=== PATIENT | male | born 1985 | race Caucasian/White ===

== ENCOUNTER 2017-12-01 09:25 | Inpatient (IN) | payer OTHER ==
[2017-12-01 10:14] VITALS: BMI 27.3
--- NOTE | 2017-12-01 11:50 | HP ---
COWS - Scale Resting Pulse: 2= VT 101-120 Sweatin= Chills/Flushing Restless Observation: 5= Unable to Sit Still Pupil Size: 1= Pupils >than Normal Bone or Joint Aches: 4=Acute Joint/Muscle Pain Runny Nose/ Eye Tearin= Constantly Teary/Runny GI Upset > 30mins: 2= Nausea/Diarrhea Tremor Observation: 4= Gross Tremor/Twitching Yawning Observation: 2= >3x During Session Anxiety or Irritability: 4=Extreme Anxiety Goose Flesh Skin: 3=Piloerection COWS Score: 32 Admission ROS [facility] Allergies/Adverse Reactions: Allergies Allergy/AdvReac Type Severity Reaction Status Date / Time No Known Allergies Allergy Verified 12/01/17 10:06 - Ebola screening Have you traveled outside of the country in the last 21 days: No (N) Have you had contact with anyone from an Ebola affected area: No Have you been sick,other than usual withdrawal symptoms: No Do you have a fever: No Patient History - Patient Medical History Hx Asthma: Yes (Intermittent) Hx Chronic Obstructive Pulmonary Disease (COPD): No Hx Cardiac Disorders: No Hx Hypertension: No Hx Seizures: No Hx Diabetes: No Hx Gastrointestinal Disorders: No Hx Genitourinary Disorders: No Hx Sexually Transmitted Disorders: No Hx Renal Disease (ESRD): No Hx Human Immunodeficiency Virus (HIV): No (within 2 years) Hx Depression: No Hx Suicide Attempt: No Hx Bipolar Disorder: No Hx Schizophrenia: No - Patient Surgical History Past Surgical History: Yes Hx Neurologic Surgery: No Hx Cataract Extraction: No Hx Cardiac Surgery: No Hx Lung Surgery: No Hx Breast Surgery: No Hx Breast Biopsy: No Hx Abdominal Surgery: No Hx Appendectomy: Yes (appendectomy at age 13) Hx Cholecystectomy: No Hx Genitourinary Surgery: No Hx Section: No Hx Orthopedic Surgery: No Anesthesia Reaction: No - PPD History Previous Implant?: Yes Documented Results: Negative w/o proof Implanted On Prior R Admission?: No - Smoking Cessation Smoking history: Current every day smoker Have you smoked in the past 12 months: Yes Aproximately how many cigarettes per day: 20 Hx Chewing Tobacco Use: No Initiated information on smoking cessation: Yes 'Breaking Loose' booklet given: 12/01/17 - Substances Abused Heroin Route: Injection Frequency: Daily Amount used: 30-40 bags Age of first use: 31 Date of Last Use: 11/29/17 Xanax Route: Oral Frequency: Daily Amount used: 2-4 mg. Age of first use: 16 Date of Last Use: 11/25/17 Family Disease History - Family Disease History Other Family History: Grandfather: AUD. Father: Cocaine, AUD. Mother: AUD. Brothers: Risky drinkers Admission Physical Exam [facility]HS - Vital Signs Vital Signs: Vital Signs - 24 hr 12/01/17 10:09 Temperature 98.2 F Pulse Rate 114 H Respiratory 17 Rate Blood Pressure 134/89 - Physical General Appearance: Yes: Anxious Respiratory: Yes: Within Normal Limits, No Respiratory Distress Cardiology: Yes: Regular Rate, Tachycardia Abdominal: Yes: Within Normal Limits Extremities: Yes: Within Normal Limits Neurological: Yes: Within Normal Limits Cleared for Admission BH - Detox or Rehab Detox Regimen/Protocol: Suboxone (Suboxone induction ) Claeared for Rehab Admission: Yes BHS Breath Alcohol Content Breath Alcohol Content: 0 Urine Drug Screen - Results Drug Screen Negative: No Urine Drug Screen Results: BZO-Benzodiazepines Inpatient Rehab Admission - Initial Determination Are CD services needed?: Yes Free of communicable disease: Yes Not in need of hospitalization: No - Rehab Admission Criteria Previous failed treatment: Yes Poor recovery environment: Yes Comorbidities: Yes Lacks judgement: Yes Patient is meeting Inpatient Rehab admission criteria:: Yes (Long history of DEDRA , failed other attempts at treatment)
[2017-12-01] MEDS ORDERED: guaiFENesin/D-METHORPHAN HB 10 ML UNIT-DOSE CUPS PO PRN (12:16)
[2017-12-01] MEDS ORDERED: ACETAMINOPHEN 325 MG TABLET (FP) PO PRN (12:16)
[2017-12-01] MEDS ORDERED: MAGNESIUM HYDROX 2400MG/30ML ORAL SUSPENSION 30 ML CUP PO PRN (12:16)
[2017-12-01] MEDS ORDERED: MENTHOL/PHENOL 1 EACH UD MM PRN (12:16)
[2017-12-01] MEDS ORDERED: P-EPHED 60MG/TRIPROLIDI 2.5MG TABLET PO PRN (12:16)
[2017-12-01] MEDS ORDERED: MAG HYDROX/AL HYDROX/SIMETH 30 ML UNIT-DOSE CUP PO PRN (12:16)
[2017-12-01] MEDS ORDERED: MAGNESIUM CITRATE 300 ML BOTTLE PO PRN (12:16)
[2017-12-01] MEDS: BUPRENORPHINE/NALOXONE 8 MG/2 MG FILM PACKET SL SCH (14:10)
[2017-12-01] MEDS: NICOTINE 21 MG/24 HOURS TOPICAL PATCH TD SCH (14:10)
[2017-12-01] MEDS: clonazePAM 0.5 MG TABLET PO SCH ×2 (14:43→21:21)
--- NOTE | 2017-12-01 18:16 | PN ---
Lb Progress Note Note: Psychiatric nurse practitioner note: Spoke to patient concerning sleep aid while in rehab. Pt. agreeable to accepting trazodone 50mg. Benefits and side effects discussed. Pt. made aware of the risk of priapism. Verbal consent given.
[2017-12-01] MEDS: THIAMINE HCL 100 MG TABLET (FP) PO SCH (21:21)
[2017-12-01] MEDS: MELATONIN 5 MG TABLETS PO PRN (21:21)
[2017-12-01] MEDS: ALBUTEROL SO4 8 GM HFA INHALER IH PRN (21:39)
[2017-12-01] MEDS ORDERED: traZODone HCL 50 MG TABLET (FP) PO SCH (22:00)
[2017-12-02 00:50] LABS: URINE APPEARANCE CLOUDY; URINE BILIRUBIN NEGATIVE (<2.0 mg/dL); URINE COLOR DKYELLOW; URINE GLUCOSE (UA) NEGATIVE (NEGATIVE); URINE KETONE NEGATIVE (NEGATIVE); URINE LEUK ESTERASE NEGATIVE (NEGATIVE); URINE NITRITE NEGATIVE (NEGATIVE); URINE UROBILINOGEN NEGATIVE mg/dL (0.2-1.0)
[2017-12-02 00:51] LABS: URINE PROTEIN 1+ (NEGATIVE)
[2017-12-02 01:03] LABS: CALCIUM OXALATE CRYSTALS MANY /hpf (NONE SEEN); URINE BACTERIA MODERATE /hpf (NONE SEEN); URINE MUCUS MANY
[2017-12-02] MEDS: ALBUTEROL SO4 8 GM HFA INHALER IH PRN ×2 (04:26→16:44)
--- NOTE | 2017-12-02 09:07 | HP ---
Psychiatrist Admission - Data Date of interview: 12/02/17 Admission source: [facility] Identifying data: Patient is a 31 year old male, single without children, unemployed, domiciled, and supported by savings. This is patient's first admission to rehab [facility]. Pt. admitted to for opiate dependence. Medical History: Asthma, appendectomy at age 13 Psychiatric History: Patient denies h/o psychiatric hospitalization. Patient's first psychiatric contact was as child due to family issues in the household. Pt. was not prescribed psychotrophic medications. The outpatient psychiatric service was for therapy. As an adult patient reports seeing a psychiatrist (2014) as an adult and was provided therapy and prescribed suboxone. Pt. denies current OPD. Pt. reports poor sleep. Physical/Sexual Abuse/Trauma History: denies. Vital Signs: Vital Signs - 24 hr 12/01/17 12/02/17 12/02/17 10:09 03:30 06:43 Temperature 98.2 F 97.8 F Pulse Rate 114 H 94 H Respiratory 17 18 18 Rate Blood Pressure 134/89 138/85 Allergies/Adverse Reactions: Allergies Allergy/AdvReac Type Severity Reaction Status Date / Time No Known Allergies Allergy Verified 12/01/17 10:06 Date of last physical exam: 12/01/17 Concur with the findings of this exam: Yes - Substance Abuse/Tx History Hx Alcohol Use: Yes ($50 month) Hx Substance Use: Yes (Heroin- $150) Substance Use Type: Heroin Hx Substance Use Treatment: Yes (Rehab in [facility] Mental Status Exam - Mental Status Exam Alert and Oriented to: Time, Place, Person Cognitive Function: Good Patient Appearance: Well Groomed Mood: Hopeful, Euthymic Affect: Appropriate Patient Behavior: Appropriate, Cooperative Speech Pattern: Clear, Appropriate Voice Loudness: Normal Thought Process: Intact, Goal Oriented Thought Disorder: Not Present Hallucinations: Denies Suicidal Ideation: Denies Homicidal Ideation: Denies Insight/Judgement: Poor Sleep: Poorly Appetite: Fair Muscle strength/Tone: Normal Gait/Station: Normal Psychiatric Findings - Problem List ([place] 1, 2,3) (1) Opioid dependence Current Visit: Yes Status: Acute (2) Substance-induced sleep disorder Current Visit: Yes Status: Acute - Initial Treatment Plan Initial Treatment Plan: Psychoeducation provided. Rehab in progress. Trazodone 100mg qhs ordered. Benefits and side effects discussed. Pt. made aware of the risk of priapism. Verbal consent given.
[2017-12-02 09:53] LABS: HEMATOCRIT 43.1 % (35.4-49); HEMOGLOBIN 13.9 GM/dL (11.7-16.9); MCH 25.8 pg (25.7-33.7); MCHC 32.3 g/dl (32.0-35.9); MEAN CELL VOLUME 79.9 fl (80-96); MEAN PLT VOLUME 7.7 fl (7.5-11.1); PLATELET COUNT 600 K/MM3 (134-434); RDW 17.9 % (11.9-15.9); WHITE BLOOD COUNT 13.2 K/mm3 (4.0-10.0)
[2017-12-02] MEDS: PRENATAL VITAMINS W/ FOLIC ACID TABLET (FP) PO SCH (10:19)
[2017-12-02] MEDS: clonazePAM 0.5 MG TABLET PO SCH ×2 (10:19→22:02)
[2017-12-02] MEDS: BUPRENORPHINE/NALOXONE 8 MG/2 MG FILM PACKET SL SCH (10:19)
[2017-12-02] MEDS: NICOTINE POLACRILEX 4 MG GUM BC PRN (10:20)
[2017-12-02] MEDS: NICOTINE 21 MG/24 HOURS TOPICAL PATCH TD SCH (10:23)
[2017-12-02 10:25] LABS: CHLORIDE 104 mmol/L (98-107); POTASSIUM 4.5 mmol/L (3.5-5.1); SODIUM 138 mmol/L (136-145)
[2017-12-02 10:34] LABS: ALBUMIN 3.7 g/dl (3.4-5.0); ALK PHOS 78 U/L (45-117); ANION GAP 11 MMOL/L (8-16); BILIRUBIN,TOTAL 0.5 mg/dL (0.2-1.0); BLOOD UREA NITROGEN 15 mg/dL (7-18); CALCIUM 9.2 mg/dL (8.5-10.1); CO2 23 mmol/L (21-32); CREATININE 0.9 mg/dL (0.7-1.3); GLUCOSE,RANDOM 102 mg/dL (74-106); SGOT/AST 24 U/L (15-37); SGPT/ALT 42 U/L (12-78); TOT PROT 8.6 g/dl (6.4-8.2)
[2017-12-02] MEDS ORDERED: traZODone HCL 50 MG TABLET (FP) PO SCH (15:25)
[2017-12-02] MEDS: BUPRENORPHINE/NALOXONE 2 MG/0.5 MG FILM PACKET SL SCH (17:11)
[2017-12-02] MEDS: THIAMINE HCL 100 MG TABLET (FP) PO SCH (22:02)
[2017-12-02] MEDS: traZODone HCL 100 MG TABLET (FP) PO SCH (22:02)
[2017-12-02] MEDS: MELATONIN 5 MG TABLETS PO PRN (22:02)
[2017-12-03] MEDS: BUPRENORPHINE/NALOXONE 8 MG/2 MG FILM PACKET SL SCH (10:09)
[2017-12-03] MEDS: clonazePAM 0.5 MG TABLET PO SCH ×2 (10:09→21:35)
[2017-12-03] MEDS: NICOTINE 21 MG/24 HOURS TOPICAL PATCH TD SCH (10:09)
[2017-12-03] MEDS: PRENATAL VITAMINS W/ FOLIC ACID TABLET (FP) PO SCH (10:09)
[2017-12-03] MEDS: clonazePAM 0.5 MG TABLET PO PRN (14:14)
[2017-12-03] MEDS: NICOTINE POLACRILEX 4 MG GUM BC PRN ×2 (14:14→17:38)
[2017-12-03] MEDS: BUPRENORPHINE/NALOXONE 2 MG/0.5 MG FILM PACKET SL SCH (17:34)
[2017-12-03] MEDS: THIAMINE HCL 100 MG TABLET (FP) PO SCH (21:35)
[2017-12-03] MEDS: traZODone HCL 100 MG TABLET (FP) PO SCH (21:35)
[2017-12-03] MEDS: MELATONIN 5 MG TABLETS PO PRN (21:36)
[2017-12-03] MEDS: ALBUTEROL SO4 8 GM HFA INHALER IH PRN (21:37)
[2017-12-04] MEDS: clonazePAM 0.5 MG TABLET PO SCH ×2 (09:58→21:37)
[2017-12-04] MEDS: PRENATAL VITAMINS W/ FOLIC ACID TABLET (FP) PO SCH (09:58)
[2017-12-04] MEDS: BUPRENORPHINE/NALOXONE 8 MG/2 MG FILM PACKET SL SCH (09:58)
[2017-12-04] MEDS: NICOTINE 21 MG/24 HOURS TOPICAL PATCH TD SCH (09:59)
[2017-12-04] MEDS: NICOTINE POLACRILEX 4 MG GUM BC PRN ×2 (10:00→21:40)
[2017-12-04] MEDS: ALBUTEROL SO4 8 GM HFA INHALER IH PRN ×2 (14:31→21:39)
[2017-12-04] MEDS: clonazePAM 0.5 MG TABLET PO PRN (14:32)
[2017-12-04] MEDS: BUPRENORPHINE/NALOXONE 2 MG/0.5 MG FILM PACKET SL SCH (17:38)
[2017-12-04] MEDS: THIAMINE HCL 100 MG TABLET (FP) PO SCH (21:37)
[2017-12-04] MEDS: MELATONIN 5 MG TABLETS PO PRN (21:38)
[2017-12-04] MEDS: traZODone HCL 100 MG TABLET (FP) PO SCH (21:38)
[2017-12-05] MEDS: PRENATAL VITAMINS W/ FOLIC ACID TABLET (FP) PO SCH (10:19)
[2017-12-05] MEDS: BUPRENORPHINE/NALOXONE 8 MG/2 MG FILM PACKET SL SCH (10:19)
[2017-12-05] MEDS: NICOTINE 21 MG/24 HOURS TOPICAL PATCH TD SCH (10:19)
[2017-12-05] MEDS: clonazePAM 0.5 MG TABLET PO SCH ×2 (10:19→21:34)
[2017-12-05] MEDS: NICOTINE POLACRILEX 4 MG GUM BC PRN ×3 (10:20→21:35)
[2017-12-05] MEDS: hydrOXYzine PAMOATE 25 MG CAPSULE (FP) PO PRN (14:08)
[2017-12-05] MEDS ORDERED: TUBERCULIN PPD 5 TU/0.1ML VIAL ID ONE (14:27)
[2017-12-05] MEDS: BUPRENORPHINE/NALOXONE 2 MG/0.5 MG FILM PACKET SL SCH (17:45)
[2017-12-05] MEDS: THIAMINE HCL 100 MG TABLET (FP) PO SCH (21:34)
[2017-12-05] MEDS: traZODone HCL 100 MG TABLET (FP) PO SCH (21:34)
[2017-12-05] MEDS: MELATONIN 5 MG TABLETS PO PRN (21:35)
[2017-12-05] MEDS: ALBUTEROL SO4 8 GM HFA INHALER IH PRN (21:36)
[2017-12-06] MEDS: hydrOXYzine PAMOATE 25 MG CAPSULE (FP) PO PRN (02:17)
[2017-12-06] MEDS: NICOTINE POLACRILEX 4 MG GUM BC PRN ×3 (08:41→21:28)
[2017-12-06] MEDS: clonazePAM 0.5 MG TABLET PO SCH ×2 (10:18→21:27)
[2017-12-06] MEDS: NICOTINE 21 MG/24 HOURS TOPICAL PATCH TD SCH (10:18)
[2017-12-06] MEDS: BUPRENORPHINE/NALOXONE 8 MG/2 MG FILM PACKET SL SCH (10:18)
[2017-12-06] MEDS: PRENATAL VITAMINS W/ FOLIC ACID TABLET (FP) PO SCH (10:18)
--- NOTE | 2017-12-06 10:54 | PN ---
Lb Progress Note Note: Patient reports experiencing difficulty to sleep despite taking Trazadone 100 mg and Melatonin. Discussed with patient increasing Trazadone dosage to 150 mg and he agreed with that plan
--- NOTE | 2017-12-06 12:50 | PN ---
[facility] Progress Note Note: Vital Signs Temperature 98 F 12/06/17 06:46 Pulse Rate 83 12/06/17 06:46 Respiratory Rate 17 12/06/17 06:46 Blood Pressure 113/69 12/06/17 06:46 O2 Sat by Pulse Oximetry (%) Laboratory Last Values WBC 13.2 K/mm3 (4.0-10.0) H 12/02/17 06:00 RBC 5.40 M/mm3 (4.00-5.60) 12/02/17 06:00 Hgb 13.9 GM/dL (11.7-16.9) 12/02/17 06:00 Hct 43.1 % (35.4-49) 12/02/17 06:00 MCV 79.9 fl (80-96) L 12/02/17 06:00 MCH 25.8 pg (25.7-33.7) 12/02/17 06:00 MCHC 32.3 g/dl (32.0-35.9) 12/02/17 06:00 RDW 17.9 % (11.9-15.9) H 12/02/17 06:00 Plt Count 600 K/MM3 (134-434) H 12/02/17 06:00 MPV 7.7 fl (7.5-11.1) 12/02/17 06:00 Sodium 138 mmol/L (136-145) 12/02/17 06:00 Potassium 4.5 mmol/L (3.5-5.1) 12/02/17 06:00 Chloride 104 mmol/L (98-107) 12/02/17 06:00 Carbon Dioxide 23 mmol/L (21-32) 12/02/17 06:00 Anion Gap 11 MMOL/L (8-16) 12/02/17 06:00 BUN 15 mg/dL (7-18) 12/02/17 06:00 Creatinine 0.9 mg/dL (0.7-1.3) 12/02/17 06:00 Creat Clearance w eGFR > 60 (>60) 12/02/17 06:00 Random Glucose 102 mg/dL (74-106) 12/02/17 06:00 Calcium 9.2 mg/dL (8.5-10.1) 12/02/17 06:00 Total Bilirubin 0.5 mg/dL (0.2-1.0) 12/02/17 06:00 AST 24 U/L (15-37) 12/02/17 06:00 ALT 42 U/L (12-78) 12/02/17 06:00 Alkaline Phosphatase 78 U/L (45-117) 12/02/17 06:00 Total Protein 8.6 g/dl (6.4-8.2) H 12/02/17 06:00 Albumin 3.7 g/dl (3.4-5.0) 12/02/17 06:00 Urine Color Dkyellow 12/01/17 23:32 Urine Appearance Cloudy 12/01/17 23:32 Urine pH 5.0 (5.0-8.0) 12/01/17 23:32 Ur Specific [place] 1.032 (1.001-1.035) 12/01/17 23:32 Urine Protein 1+ (NEGATIVE) H 12/01/17 23:32 Urine Glucose (UA) Negative (NEGATIVE) 12/01/17 23:32 Urine Ketones Negative (NEGATIVE) 12/01/17 23:32 Urine Blood Negative (NEGATIVE) 12/01/17 23:32 Urine Nitrite Negative (NEGATIVE) 12/01/17 23:32 Urine Bilirubin Negative (<2.0 mg/dL) 12/01/17 23:32 Urine Urobilinogen Negative mg/dL (0.2-1.0) 12/01/17 23:32 Ur Leukocyte Esterase Negative (NEGATIVE) 12/01/17 23:32 Urine WBC (Auto) 14 /hpf (3-5) 12/01/17 23:32 Urine RBC (Auto) 14 /hpf (0-3) 12/01/17 23:32 Calcium Oxalate Crystal Many /hpf (NONE SEEN) 12/01/17 23:32 Urine Bacteria Moderate /hpf (NONE SEEN) 12/01/17 23:32 Urine Mucus Many 12/01/17 23:32 RPR Titer Nonreactive (NONREACTIVE) 12/02/17 06:00 Patient c/o of teeth grinding body aches, jaw tightening at night patient Aox3 anxious no distress no adventitious breath sounds full ROM muscle tightness flexeril PRN increase fluids continue to monitor
[2017-12-06] MEDS: CYCLOBENZAPRINE HCL 5 MG TABLET PO SCH ×2 (14:13→21:27)
[2017-12-06] MEDS: hydrOXYzine PAMOATE 50 MG CAPSULE (FP) PO PRN (14:13)
[2017-12-06] MEDS: BUPRENORPHINE/NALOXONE 2 MG/0.5 MG FILM PACKET SL SCH (17:32)
[2017-12-06] MEDS: THIAMINE HCL 100 MG TABLET (FP) PO SCH (21:27)
[2017-12-06] MEDS: traZODone HCL 50 MG TABLET (FP) PO SCH (21:27)
[2017-12-06] MEDS: MELATONIN 5 MG TABLETS PO PRN (21:28)
[2017-12-07] MEDS: CYCLOBENZAPRINE HCL 5 MG TABLET PO SCH ×3 (07:05→13:22)
[2017-12-07] MEDS: hydrOXYzine PAMOATE 50 MG CAPSULE (FP) PO PRN ×2 (07:31→13:22)
[2017-12-07] MEDS: BUPRENORPHINE/NALOXONE 8 MG/2 MG FILM PACKET SL SCH (10:16)
[2017-12-07] MEDS: clonazePAM 0.5 MG TABLET PO SCH ×2 (10:16→21:30)
[2017-12-07] MEDS: PRENATAL VITAMINS W/ FOLIC ACID TABLET (FP) PO SCH (10:16)
[2017-12-07] MEDS: NICOTINE 21 MG/24 HOURS TOPICAL PATCH TD SCH (10:16)
--- NOTE | 2017-12-07 11:27 | PN ---
Psychiatric Progress Note Vital Signs: Vital Signs Period Temp Pulse Resp BP Sys/Cordon Pulse Ox Last 24 Hr 98.9 F 86 18-18 113/72 Date of Session: 12/07/17 Chief Complaint:: "Should i take a medication for depression." HPI: Patient admitted to for opioid dependence. ROS: Asthma, appendectomy at age 13 Current Medications: Active Medications Generic Name Dose Route Start Last Admin Trade Name Freq PRN Reason Stop Dose Admin Acetaminophen 650 mg 12/01/17 12:16 Tylenol - PO Q4H PRN FEVER Al Hydroxide/Mg Hydroxide 30 ml 12/01/17 12:16 Mylanta Oral Suspension - PO Q6H PRN DYSPEPSIA Albuterol Sulfate 2 puff 12/01/17 21:34 12/05/17 21:36 Ventolin Hfa Inhaler - IH 2 puff Q4H PRN Administration ASTHMA Buprenorphine/Naloxone 2 each 12/02/17 18:00 12/06/17 17:32 Suboxone 2mg/0.5mg Sl Film - SL 12/09/17 17:59 2 each DAILY@1800 JEAN Administration Clonazepam 1 mg 12/01/17 14:00 12/07/17 10:16 Klonopin - PO 1 mg BID JEAN Administration Cyclobenzaprine HCl 5 mg 12/07/17 07:30 12/07/17 07:29 Cyclobenzaprine Hcl PO 5 mg TID JEAN Administration Eucalyptus/Menthol/Phenol/Sorbitol 1 each 12/01/17 12:16 Cepastat Lozenge - MM Q4H PRN SORE THROAT Guaifenesin 10 ml 12/01/17 12:16 Robitussin Dm - PO Q6H PRN COUGH Hydroxyzine Pamoate 50 mg 12/06/17 12:49 12/07/17 07:31 Vistaril - PO 50 mg Q4H PRN Administration AGITATION Ibuprofen 400 mg 12/01/17 12:16 Motrin - PO Q6H PRN Pain level 4-6 Loperamide HCl 4 mg 12/01/17 12:16 Imodium - PO Q6H PRN DIARRHEA Magnesium Citrate 300 ml 12/01/17 12:16 Citroma - PO Q48H PRN CONSTIPATION Magnesium Hydroxide 30 ml 12/01/17 12:16 Milk Of Magnesia - PO DAILY PRN CONSTIPATION Melatonin 5 mg 12/01/17 22:00 12/06/17 21:28 Melatonin PO 5 mg HS PRN Administration INSOMNIA Nicotine 21 mg 12/01/17 12:30 12/07/17 10:16 Nicoderm Patch - TD 21 mg DAILY JEAN Administration Nicotine Polacrilex 4 mg 12/01/17 12:16 12/06/17 21:28 Nicorette Gum - BC 4 mg Q2H PRN Administration NICOTINE REPLACEMENT RX Multivit/Folic Acid/Iron 1 tab 12/02/17 10:00 12/07/17 10:16 Vitamins (Sjr) - PO 1 tab DAILY JEAN Administration Pseudoephedrine/Triprolidine 1 combo 12/01/17 12:16 Actifed - PO TID PRN NASAL CONGESTION Thiamine HCl 100 mg 12/01/17 22:00 12/06/17 21:27 Vitamin B1 - PO 100 mg HS JEAN Administration Trazodone HCl 150 mg 12/06/17 22:00 12/06/17 21:27 Desyrel - PO 150 mg HS JEAN Administration Medication(s) Change(s): No. Current Side Effect: No Lab tests ordered: No Lab tests reviewed: Yes Provider note:: Pt. inquiring information on possibly starting an antidepressant. Pt. currently reports improved mood since admission to rehab. States he feels motivated to get up in the morning. Pt. remains motivated to complete rehab and continue treatment after discharge. Pt. is currently prescribed trazodone 150mg qhs. Pt. informed of the properties of trazodone and made aware that trazodone is used to treat depression. Pt. responded by stating , " oh i thought it was only for sleep." At this time there is no clinical indication to start patient on an additional antidepressant. Pt. agreeable with plan. Will continue to monitor patient. Total face to face time:: 20 Mental Status Exam - Mental Status Exam Alert and Oriented to: Time, Place, Person Cognitive Function: Good Patient Appearance: Well Groomed Mood: Hopeful Affect: Appropriate, Mood Congruent Patient Behavior: Appropriate, Cooperative Speech Pattern: Clear, Appropriate Voice Loudness: Normal Thought Process: Intact, Goal Oriented Thought Disorder: Not Present Hallucinations: Denies Suicidal Ideation: Denies Homicidal Ideation: Denies Insight/Judgement: Poor Sleep: Fair Appetite: Fair Muscle strength/Tone: Normal Gait/Station: Normal Psychiatric Treatment Plan - Problem List (1) Opioid dependence Current Visit: Yes (2) Substance-induced sleep disorder Current Visit: Yes
[2017-12-07] MEDS: CYCLOBENZAPRINE HCL 10 MG TABLET (FP) PO SCH ×2 (14:30→21:30)
[2017-12-07] MEDS: NICOTINE POLACRILEX 4 MG GUM BC PRN (17:25)
[2017-12-07] MEDS: BUPRENORPHINE/NALOXONE 2 MG/0.5 MG FILM PACKET SL SCH (17:25)
[2017-12-07] MEDS: THIAMINE HCL 100 MG TABLET (FP) PO SCH (21:29)
[2017-12-07] MEDS: traZODone HCL 50 MG TABLET (FP) PO SCH (21:29)
[2017-12-07] MEDS: MELATONIN 5 MG TABLETS PO PRN (21:30)
[2017-12-07] MEDS: IBUPROFEN 400 MG TABLET (FP) PO PRN (21:31)
[2017-12-08] MEDS: CYCLOBENZAPRINE HCL 10 MG TABLET (FP) PO SCH ×3 (06:31→21:30)
[2017-12-08] MEDS: hydrOXYzine PAMOATE 50 MG CAPSULE (FP) PO PRN ×2 (06:33→14:14)
[2017-12-08] MEDS: clonazePAM 0.5 MG TABLET PO SCH (10:16)
[2017-12-08] MEDS: PRENATAL VITAMINS W/ FOLIC ACID TABLET (FP) PO SCH (10:16)
[2017-12-08] MEDS: NICOTINE 21 MG/24 HOURS TOPICAL PATCH TD SCH (10:16)
[2017-12-08] MEDS: IBUPROFEN 400 MG TABLET (FP) PO PRN ×2 (10:18→21:32)
[2017-12-08] MEDS ORDERED: BUPRENORPHINE/NALOXONE 8 MG/2 MG FILM PACKET SL SCH (10:45)
--- NOTE | 2017-12-08 16:23 | PN ---
S Progress Note Note: Vital Signs Temperature 97.9 F 12/08/17 07:16 Pulse Rate 82 12/08/17 07:16 Respiratory Rate 18 12/08/17 07:16 Blood Pressure 117/68 12/08/17 07:16 O2 Sat by Pulse Oximetry (%) Patient reports on going opioid cravings, anxiety, restless legs and reports current suboxone 12 mg dose is not helping Patient Aox3, no distress , anxious no adventitious breath sounds full ROM opioid dependence Plan: will increase suboxone PM dose from 4mg to 8 mg starting today increase PO fluids continue to monitor
[2017-12-08] MEDS: BUPRENORPHINE/NALOXONE 8 MG/2 MG FILM PACKET SL SCH (17:54)
[2017-12-08] MEDS: THIAMINE HCL 100 MG TABLET (FP) PO SCH (21:30)
[2017-12-08] MEDS: traZODone HCL 50 MG TABLET (FP) PO SCH (21:30)
[2017-12-08] MEDS: MELATONIN 5 MG TABLETS PO PRN (21:31)
[2017-12-09] MEDS: CYCLOBENZAPRINE HCL 10 MG TABLET (FP) PO SCH ×3 (06:35→21:25)
[2017-12-09] MEDS: hydrOXYzine PAMOATE 50 MG CAPSULE (FP) PO PRN ×3 (06:36→17:42)
[2017-12-09] MEDS: NICOTINE 21 MG/24 HOURS TOPICAL PATCH TD SCH (10:18)
[2017-12-09] MEDS: PRENATAL VITAMINS W/ FOLIC ACID TABLET (FP) PO SCH (10:18)
[2017-12-09] MEDS: BUPRENORPHINE/NALOXONE 8 MG/2 MG FILM PACKET SL SCH ×2 (10:19→17:41)
--- NOTE | 2017-12-09 14:26 | PN ---
Progress Note, Physician Chief Complaint: Lawrence asked to see me because his Klonopin orders had run out and he was starting to go into withdrawal. Additionally, he was experiencing nighttime cramping of his legs, most likely secondary to residual opiate withdrawal. His PRN Klonopin was finished some days ago, so he is effectively on 2mg a day, which is a decrease from the Xanax he was taking as an outpatient. He continues to have sporadic episodes of bruxism from withdrawal. The plan is for him to go to [facility] in [place] after d/c, however he will need someone to prescribe his Suboxone and we need to make sure he can get it there. His PCP, who was prescribing the Xanax, willl most likely continue the Klonopin for him. He should b e decreased by 10 percent of his total weekly dose every week. Appears much better than when I saw him in admitting. AOx3. NAD. Pale. Mood: Down Affect: WNL - Current Medication List Current Medications: Active Medications Acetaminophen (Tylenol -) 650 mg PO Q4H PRN PRN Reason: FEVER Last Admin: 12/07/17 13:22 Dose: 650 mg Al Hydroxide/Mg Hydroxide (Mylanta Oral Suspension -) 30 ml PO Q6H PRN PRN Reason: DYSPEPSIA Albuterol Sulfate (Ventolin Hfa Inhaler -) 2 puff IH Q4H PRN PRN Reason: ASTHMA Last Admin: 12/05/17 21:36 Dose: 2 puff Buprenorphine/Naloxone (Suboxone 8mg/2mg Sl Film -) 1 each SL BID@1000,1800 JEAN Last Admin: 12/09/17 10:19 Dose: 1 each Buprenorphine/Naloxone (Suboxone 2mg/0.5mg Sl Film -) 2 each SL DAILY JEAN Clonazepam (Klonopin -) 1 mg PO BID JEAN Stop: 12/16/17 13:59 Clonazepam (Klonopin -) 0.25 mg PO Q4H PRN PRN Reason: ANXIETY Cyclobenzaprine HCl (Flexeril -) 10 mg PO TID [facility] Last Admin: 12/09/17 13:16 Dose: 10 mg Eucalyptus/Menthol/Phenol/Sorbitol (Cepastat Lozenge -) 1 each MM Q4H PRN PRN Reason: SORE THROAT Gabapentin (Neurontin -) 100 mg PO TID [facility] Guaifenesin (Robitussin Dm -) 10 ml PO Q6H PRN PRN Reason: COUGH Hydroxyzine Pamoate (Vistaril -) 50 mg PO Q4H PRN PRN Reason: AGITATION Last Admin: 12/09/17 10:23 Dose: 50 mg Ibuprofen (Motrin -) 400 mg PO Q6H PRN PRN Reason: Pain level 4-6 Last Admin: 12/08/17 21:32 Dose: 400 mg Loperamide HCl (Imodium -) 4 mg PO Q6H PRN PRN Reason: DIARRHEA Magnesium Citrate (Citroma -) 300 ml PO Q48H PRN PRN Reason: CONSTIPATION Magnesium Hydroxide (Milk Of Magnesia -) 30 ml PO DAILY PRN PRN Reason: CONSTIPATION Melatonin (Melatonin) 5 mg PO HS PRN PRN Reason: INSOMNIA Last Admin: 12/08/17 21:31 Dose: 5 mg Nicotine (Nicoderm Patch -) 21 mg TD DAILY [facility] Last Admin: 12/09/17 10:18 Dose: 21 mg Nicotine Polacrilex (Nicorette Gum -) 4 mg BC Q2H PRN PRN Reason: NICOTINE REPLACEMENT RX Last Admin: 12/07/17 17:25 Dose: 4 mg Multivit/Folic Acid/Iron ( Vitamins (Sjr) -) 1 tab PO DAILY [facility] Last Admin: 12/09/17 10:18 Dose: 1 tab Pseudoephedrine/Triprolidine (Actifed -) 1 combo PO TID PRN PRN Reason: NASAL CONGESTION Thiamine HCl (Vitamin B1 -) 100 mg PO [facility] Last Admin: 12/08/17 21:30 Dose: 100 mg Trazodone HCl (Desyrel -) 150 mg PO HS [facility] Last Admin: 12/08/17 21:30 Dose: 150 mg - Objective Vital Signs: Vital Signs Temperature 97.6 F 12/09/17 07:11 Pulse Rate 91 H 12/09/17 07:11 Respiratory Rate 18 12/09/17 07:11 Blood Pressure 126/63 12/09/17 07:11 O2 Sat by Pulse Oximetry (%) Constitutional: Yes: No Distress Eyes: Yes: WNL HENT: Yes: WNL Neck: Yes: WNL Cardiovascular: Yes: Regular Rate and Rhythm Respiratory: Yes: WNL Gastrointestinal: Yes: WNL Labs: CBC, BMP 12/02/17 06:00 12/02/17 06:00 Problem List - Problems (1) Opioid dependence Assessment/Plan: Increase Suboxone to 20mg a day (8mg qam, 4mg q4pm, 8mg qpm). Need to make sure that [facility] can medicate him with Suboxone before discharge. Code(s): F11.20 - OPIOID DEPENDENCE, UNCOMPLICATED Qualifiers: Substance use status: with opioid-induced sleep disorder Qualified Code(s) : F11.282 - Opioid dependence with opioid-induced sleep disorder (2) Benzodiazepine abuse in remission Assessment/Plan: For now I am maintaining him on Klonopin 1mg BID, a decrease from his Xanax dose (on conversion). He also has PRn for breakthrough. Additionally, I have prescribed an initial dosing regimen of Neurontin to help with his residual Xanax withdrawal. 100mg TID. Will re -evaluate on Tuesday to see if it is helping and can increase dose. Code(s): F13.11 - SEDATIVE, HYPNOTIC OR ANXIOLYTIC ABUSE, IN REMISSION
[2017-12-09] MEDS: clonazePAM 0.5 MG TABLET PO SCH ×2 (15:10→21:25)
[2017-12-09] MEDS: NICOTINE POLACRILEX 4 MG GUM BC PRN ×2 (15:50→21:27)
[2017-12-09] MEDS: traZODone HCL 50 MG TABLET (FP) PO SCH (21:25)
[2017-12-09] MEDS: THIAMINE HCL 100 MG TABLET (FP) PO SCH (21:25)
[2017-12-09] MEDS: GABAPENTIN 100 MG CAPSULE (FP) PO SCH (21:25)
[2017-12-09] MEDS: MELATONIN 5 MG TABLETS PO PRN (21:26)
[2017-12-10] MEDS: hydrOXYzine PAMOATE 50 MG CAPSULE (FP) PO PRN ×3 (06:20→17:58)
[2017-12-10] MEDS: CYCLOBENZAPRINE HCL 10 MG TABLET (FP) PO SCH ×3 (06:20→21:25)
[2017-12-10] MEDS: GABAPENTIN 100 MG CAPSULE (FP) PO SCH ×3 (06:20→21:24)
[2017-12-10] MEDS: BUPRENORPHINE/NALOXONE 8 MG/2 MG FILM PACKET SL SCH ×2 (10:40→17:55)
[2017-12-10] MEDS: IBUPROFEN 400 MG TABLET (FP) PO PRN (10:40)
[2017-12-10] MEDS: PRENATAL VITAMINS W/ FOLIC ACID TABLET (FP) PO SCH (10:40)
[2017-12-10] MEDS: NICOTINE 21 MG/24 HOURS TOPICAL PATCH TD SCH (10:40)
[2017-12-10] MEDS: clonazePAM 0.5 MG TABLET PO SCH ×2 (10:40→21:24)
[2017-12-10] MEDS: NICOTINE POLACRILEX 4 MG GUM BC PRN ×2 (10:44→14:22)
[2017-12-10] MEDS: clonazePAM 0.5 MG TABLET PO PRN (14:20)
[2017-12-10] MEDS: BUPRENORPHINE/NALOXONE 2 MG/0.5 MG FILM PACKET SL SCH (16:00)
[2017-12-10] MEDS: THIAMINE HCL 100 MG TABLET (FP) PO SCH (21:24)
[2017-12-10] MEDS: traZODone HCL 50 MG TABLET (FP) PO SCH (21:24)
[2017-12-11] MEDS: CYCLOBENZAPRINE HCL 10 MG TABLET (FP) PO SCH ×3 (06:33→21:33)
[2017-12-11] MEDS: hydrOXYzine PAMOATE 50 MG CAPSULE (FP) PO PRN ×2 (06:33→10:18)
[2017-12-11] MEDS: GABAPENTIN 100 MG CAPSULE (FP) PO SCH ×3 (06:33→21:33)
[2017-12-11] MEDS: NICOTINE 21 MG/24 HOURS TOPICAL PATCH TD SCH (10:18)
[2017-12-11] MEDS: BUPRENORPHINE/NALOXONE 8 MG/2 MG FILM PACKET SL SCH ×2 (10:18→17:37)
[2017-12-11] MEDS: PRENATAL VITAMINS W/ FOLIC ACID TABLET (FP) PO SCH (10:18)
[2017-12-11] MEDS: clonazePAM 0.5 MG TABLET PO SCH ×2 (10:18→21:33)
[2017-12-11] MEDS: NICOTINE POLACRILEX 4 MG GUM BC PRN ×3 (10:18→21:33)
[2017-12-11] MEDS: IBUPROFEN 400 MG TABLET (FP) PO PRN ×2 (10:20→21:33)
[2017-12-11] MEDS: clonazePAM 0.5 MG TABLET PO PRN (14:58)
[2017-12-11] MEDS: BUPRENORPHINE/NALOXONE 2 MG/0.5 MG FILM PACKET SL SCH (16:13)
[2017-12-11] MEDS: THIAMINE HCL 100 MG TABLET (FP) PO SCH (21:33)
[2017-12-11] MEDS: MELATONIN 5 MG TABLETS PO PRN (21:33)
[2017-12-11] MEDS: traZODone HCL 50 MG TABLET (FP) PO SCH (21:33)
[2017-12-12] MEDS: CYCLOBENZAPRINE HCL 10 MG TABLET (FP) PO SCH ×3 (06:40→21:38)
[2017-12-12] MEDS: GABAPENTIN 100 MG CAPSULE (FP) PO SCH ×3 (06:40→21:38)
[2017-12-12] MEDS: NICOTINE POLACRILEX 4 MG GUM BC PRN ×2 (06:40→10:44)
[2017-12-12] MEDS: hydrOXYzine PAMOATE 50 MG CAPSULE (FP) PO PRN (06:41)
[2017-12-12] MEDS: clonazePAM 0.5 MG TABLET PO SCH ×2 (10:37→21:38)
[2017-12-12] MEDS: BUPRENORPHINE/NALOXONE 8 MG/2 MG FILM PACKET SL SCH ×2 (10:37→21:38)
[2017-12-12] MEDS: PRENATAL VITAMINS W/ FOLIC ACID TABLET (FP) PO SCH (10:37)
[2017-12-12] MEDS: NICOTINE 21 MG/24 HOURS TOPICAL PATCH TD SCH (10:38)
[2017-12-12] MEDS: IBUPROFEN 400 MG TABLET (FP) PO PRN (10:39)
[2017-12-12] MEDS: BUPRENORPHINE/NALOXONE 2 MG/0.5 MG FILM PACKET SL SCH (17:05)
[2017-12-12] MEDS: traZODone HCL 50 MG TABLET (FP) PO SCH (21:37)
[2017-12-12] MEDS: THIAMINE HCL 100 MG TABLET (FP) PO SCH (21:37)
[2017-12-12] MEDS: MELATONIN 5 MG TABLETS PO PRN (21:39)
[2017-12-12] MEDS: LOPERAMIDE HCL 2 MG CAPSULE PO PRN (23:41)
[2017-12-13] MEDS: CYCLOBENZAPRINE HCL 10 MG TABLET (FP) PO SCH ×3 (06:21→21:32)
[2017-12-13] MEDS: LOPERAMIDE HCL 2 MG CAPSULE PO PRN ×3 (06:21→21:35)
[2017-12-13] MEDS: GABAPENTIN 100 MG CAPSULE (FP) PO SCH ×3 (06:21→21:32)
[2017-12-13] MEDS: BUPRENORPHINE/NALOXONE 8 MG/2 MG FILM PACKET SL SCH ×2 (10:22→17:49)
[2017-12-13] MEDS: clonazePAM 0.5 MG TABLET PO SCH ×2 (10:22→21:33)
[2017-12-13] MEDS: hydrOXYzine PAMOATE 50 MG CAPSULE (FP) PO PRN ×2 (10:23→17:49)
[2017-12-13] MEDS: NICOTINE 21 MG/24 HOURS TOPICAL PATCH TD SCH (10:23)
[2017-12-13] MEDS: PRENATAL VITAMINS W/ FOLIC ACID TABLET (FP) PO SCH (10:23)
[2017-12-13] MEDS: BUPRENORPHINE/NALOXONE 2 MG/0.5 MG FILM PACKET SL SCH (13:45)
[2017-12-13] MEDS: traZODone HCL 50 MG TABLET (FP) PO SCH (21:32)
[2017-12-13] MEDS: THIAMINE HCL 100 MG TABLET (FP) PO SCH (21:32)
[2017-12-14] MEDS: CYCLOBENZAPRINE HCL 10 MG TABLET (FP) PO SCH ×3 (06:28→21:31)
[2017-12-14] MEDS: hydrOXYzine PAMOATE 50 MG CAPSULE (FP) PO PRN ×3 (06:28→18:28)
[2017-12-14] MEDS: GABAPENTIN 100 MG CAPSULE (FP) PO SCH ×3 (06:28→21:31)
[2017-12-14] MEDS: LOPERAMIDE HCL 2 MG CAPSULE PO PRN ×2 (06:29→14:23)
[2017-12-14] MEDS: NICOTINE 21 MG/24 HOURS TOPICAL PATCH TD SCH (10:16)
[2017-12-14] MEDS: BUPRENORPHINE/NALOXONE 8 MG/2 MG FILM PACKET SL SCH ×2 (10:16→18:26)
[2017-12-14] MEDS: PRENATAL VITAMINS W/ FOLIC ACID TABLET (FP) PO SCH (10:16)
[2017-12-14] MEDS: clonazePAM 0.5 MG TABLET PO SCH ×2 (10:17→21:31)
[2017-12-14] MEDS: IBUPROFEN 400 MG TABLET (FP) PO PRN (10:20)
[2017-12-14] MEDS: BUPRENORPHINE/NALOXONE 2 MG/0.5 MG FILM PACKET SL SCH (14:22)
[2017-12-14] MEDS: NICOTINE POLACRILEX 4 MG GUM BC PRN (18:28)
[2017-12-14] MEDS: THIAMINE HCL 100 MG TABLET (FP) PO SCH (21:31)
[2017-12-14] MEDS: traZODone HCL 50 MG TABLET (FP) PO SCH (21:32)
[2017-12-15] MEDS: hydrOXYzine PAMOATE 50 MG CAPSULE (FP) PO PRN ×3 (06:18→18:00)
[2017-12-15] MEDS: GABAPENTIN 100 MG CAPSULE (FP) PO SCH ×3 (06:18→21:35)
[2017-12-15] MEDS: CYCLOBENZAPRINE HCL 10 MG TABLET (FP) PO SCH ×3 (06:18→21:35)
[2017-12-15] MEDS: LOPERAMIDE HCL 2 MG CAPSULE PO PRN (06:18)
[2017-12-15] MEDS: clonazePAM 0.5 MG TABLET PO SCH ×2 (10:24→21:35)
[2017-12-15] MEDS: NICOTINE 21 MG/24 HOURS TOPICAL PATCH TD SCH (10:25)
[2017-12-15] MEDS: PRENATAL VITAMINS W/ FOLIC ACID TABLET (FP) PO SCH (10:25)
[2017-12-15] MEDS: BUPRENORPHINE/NALOXONE 8 MG/2 MG FILM PACKET SL SCH ×2 (10:27→18:00)
[2017-12-15] MEDS ORDERED: DIPHENOXYLATE 2.5/ATROPINE.025 1 COMBO TABLET PO PRN (13:23)
--- NOTE | 2017-12-15 13:25 | PN ---
[facility] Progress Note Note: Vital Signs Temperature 98.0 F 12/15/17 06:58 Pulse Rate 76 12/15/17 06:58 Respiratory Rate 18 12/15/17 06:58 Blood Pressure 115/63 12/15/17 06:58 O2 Sat by Pulse Oximetry (%) c/o of diarrhea with no improvement with immodium lomotil PRN fluids as tolerated continue to monitor
[2017-12-15] MEDS: BUPRENORPHINE/NALOXONE 2 MG/0.5 MG FILM PACKET SL SCH (14:07)
[2017-12-15] MEDS: NICOTINE POLACRILEX 4 MG GUM BC PRN ×2 (18:00→21:37)
[2017-12-15] MEDS: traZODone HCL 50 MG TABLET (FP) PO SCH (21:35)
[2017-12-15] MEDS: THIAMINE HCL 100 MG TABLET (FP) PO SCH (21:36)
[2017-12-16] MEDS: hydrOXYzine PAMOATE 50 MG CAPSULE (FP) PO PRN ×4 (06:15→21:35)
[2017-12-16] MEDS: CYCLOBENZAPRINE HCL 10 MG TABLET (FP) PO SCH ×3 (06:15→21:35)
[2017-12-16] MEDS: GABAPENTIN 100 MG CAPSULE (FP) PO SCH ×3 (06:15→21:35)
[2017-12-16] MEDS: PRENATAL VITAMINS W/ FOLIC ACID TABLET (FP) PO SCH (10:10)
[2017-12-16] MEDS: NICOTINE 21 MG/24 HOURS TOPICAL PATCH TD SCH (10:10)
[2017-12-16] MEDS: BUPRENORPHINE/NALOXONE 8 MG/2 MG FILM PACKET SL SCH ×2 (10:11→17:48)
[2017-12-16] MEDS: clonazePAM 0.5 MG TABLET PO SCH ×2 (10:11→21:35)
[2017-12-16] MEDS: NICOTINE POLACRILEX 4 MG GUM BC PRN (10:13)
[2017-12-16] MEDS: LOPERAMIDE HCL 2 MG CAPSULE PO PRN ×2 (10:13→21:37)
[2017-12-16] MEDS: BUPRENORPHINE/NALOXONE 2 MG/0.5 MG FILM PACKET SL SCH (14:44)
[2017-12-16] MEDS: traZODone HCL 50 MG TABLET (FP) PO SCH (21:35)
[2017-12-16] MEDS: MELATONIN 5 MG TABLETS PO PRN (21:36)
[2017-12-16] MEDS: THIAMINE HCL 100 MG TABLET (FP) PO SCH (21:36)
[2017-12-17] MEDS: GABAPENTIN 100 MG CAPSULE (FP) PO SCH ×3 (06:21→21:38)
[2017-12-17] MEDS: CYCLOBENZAPRINE HCL 10 MG TABLET (FP) PO SCH ×3 (06:21→21:39)
[2017-12-17] MEDS: hydrOXYzine PAMOATE 50 MG CAPSULE (FP) PO PRN ×4 (06:21→21:39)
[2017-12-17] MEDS: LOPERAMIDE HCL 2 MG CAPSULE PO PRN ×2 (08:17→17:44)
[2017-12-17] MEDS: NICOTINE 21 MG/24 HOURS TOPICAL PATCH TD SCH (10:06)
[2017-12-17] MEDS: BUPRENORPHINE/NALOXONE 8 MG/2 MG FILM PACKET SL SCH ×2 (10:06→17:45)
[2017-12-17] MEDS: clonazePAM 0.5 MG TABLET PO SCH ×2 (10:06→21:38)
[2017-12-17] MEDS: PRENATAL VITAMINS W/ FOLIC ACID TABLET (FP) PO SCH (10:06)
[2017-12-17] MEDS: NICOTINE POLACRILEX 4 MG GUM BC PRN ×2 (10:24→21:40)
[2017-12-17] MEDS: BUPRENORPHINE/NALOXONE 2 MG/0.5 MG FILM PACKET SL SCH (14:59)
[2017-12-17] MEDS: traZODone HCL 50 MG TABLET (FP) PO SCH (21:38)
[2017-12-17] MEDS: THIAMINE HCL 100 MG TABLET (FP) PO SCH (21:39)
[2017-12-17] MEDS: MELATONIN 5 MG TABLETS PO PRN (21:40)
[2017-12-18] MEDS: GABAPENTIN 100 MG CAPSULE (FP) PO SCH ×3 (06:23→21:38)
[2017-12-18] MEDS: CYCLOBENZAPRINE HCL 10 MG TABLET (FP) PO SCH ×3 (06:23→21:39)
[2017-12-18] MEDS: NICOTINE POLACRILEX 4 MG GUM BC PRN ×3 (06:24→21:41)
[2017-12-18] MEDS: hydrOXYzine PAMOATE 50 MG CAPSULE (FP) PO PRN ×4 (06:24→21:42)
[2017-12-18] MEDS: LOPERAMIDE HCL 2 MG CAPSULE PO PRN (06:25)
[2017-12-18] MEDS: clonazePAM 0.5 MG TABLET PO SCH ×2 (10:15→21:38)
[2017-12-18] MEDS: PRENATAL VITAMINS W/ FOLIC ACID TABLET (FP) PO SCH (10:16)
[2017-12-18] MEDS: BUPRENORPHINE/NALOXONE 8 MG/2 MG FILM PACKET SL SCH ×2 (10:16→17:43)
[2017-12-18] MEDS: NICOTINE 21 MG/24 HOURS TOPICAL PATCH TD SCH (10:16)
[2017-12-18] MEDS: BUPRENORPHINE/NALOXONE 2 MG/0.5 MG FILM PACKET SL SCH (14:26)
[2017-12-18] MEDS: DIPHENOXYLATE 2.5/ATROPINE.025 1 COMBO TABLET PO PRN (14:26)
[2017-12-18] MEDS: THIAMINE HCL 100 MG TABLET (FP) PO SCH (21:38)
[2017-12-18] MEDS: traZODone HCL 50 MG TABLET (FP) PO SCH (21:38)
[2017-12-18] MEDS: MELATONIN 5 MG TABLETS PO PRN (21:39)
[2017-12-19] MEDS: GABAPENTIN 100 MG CAPSULE (FP) PO SCH ×3 (06:42→21:33)
[2017-12-19] MEDS: hydrOXYzine PAMOATE 50 MG CAPSULE (FP) PO PRN ×4 (06:43→23:10)
[2017-12-19] MEDS: CYCLOBENZAPRINE HCL 10 MG TABLET (FP) PO SCH ×3 (06:43→21:33)
[2017-12-19] MEDS: DIPHENOXYLATE 2.5/ATROPINE.025 1 COMBO TABLET PO PRN ×2 (07:22→23:09)
[2017-12-19] MEDS: NICOTINE 21 MG/24 HOURS TOPICAL PATCH TD SCH (10:57)
[2017-12-19] MEDS: BUPRENORPHINE/NALOXONE 8 MG/2 MG FILM PACKET SL SCH ×2 (10:57→17:47)
[2017-12-19] MEDS: clonazePAM 0.5 MG TABLET PO SCH ×2 (10:57→21:32)
[2017-12-19] MEDS: PRENATAL VITAMINS W/ FOLIC ACID TABLET (FP) PO SCH (10:57)
[2017-12-19] MEDS: NICOTINE POLACRILEX 4 MG GUM BC PRN ×2 (10:58→17:48)
[2017-12-19] MEDS ORDERED: COLLOIDAL OATMEAL 1 BAR EACH TP PRN (13:08)
--- NOTE | 2017-12-19 13:23 | PN ---
[facility] Progress Note Note: PT C/O RASH ON HEAD/HANDS/TRUNK/BACK. PT REPORTS NEW OUT BREAK 2 DAYS NOW. SKIN:PAPULAR RED RASH ON HAIRLINE, FACE AND BACK BACK. MULTIPLE AREAS ON BOTH ARMS WITH OLD HEALED SCARS--POSSIBLE IVD INJ SITES. PLAN;AVEENO SOAP DAILY FOR HYGIENE. HYDROCORTISONE CREAM 1% APPLY DIRECTED.
[2017-12-19] MEDS: BUPRENORPHINE/NALOXONE 2 MG/0.5 MG FILM PACKET SL SCH (14:09)
[2017-12-19] MEDS: HYDROCORTISONE 1% TOPICAL CREAM 30 GM TUBE TP SCH ×2 (14:09→21:35)
[2017-12-19] MEDS: traZODone HCL 50 MG TABLET (FP) PO SCH (21:32)
[2017-12-19] MEDS: THIAMINE HCL 100 MG TABLET (FP) PO SCH (21:34)
[2017-12-20] MEDS: CYCLOBENZAPRINE HCL 10 MG TABLET (FP) PO SCH ×3 (06:16→21:25)
[2017-12-20] MEDS: GABAPENTIN 100 MG CAPSULE (FP) PO SCH ×3 (06:16→21:25)
[2017-12-20] MEDS: hydrOXYzine PAMOATE 50 MG CAPSULE (FP) PO PRN ×4 (06:17→21:26)
[2017-12-20] MEDS: DIPHENOXYLATE 2.5/ATROPINE.025 1 COMBO TABLET PO PRN ×2 (06:17→14:38)
[2017-12-20] MEDS: NICOTINE 21 MG/24 HOURS TOPICAL PATCH TD SCH (10:00)
[2017-12-20] MEDS: PRENATAL VITAMINS W/ FOLIC ACID TABLET (FP) PO SCH (10:32)
[2017-12-20] MEDS: clonazePAM 0.5 MG TABLET PO SCH ×2 (10:32→21:25)
[2017-12-20] MEDS: BUPRENORPHINE/NALOXONE 8 MG/2 MG FILM PACKET SL SCH ×2 (10:32→17:48)
[2017-12-20] MEDS: NICOTINE POLACRILEX 4 MG GUM BC PRN ×3 (10:34→21:26)
[2017-12-20] MEDS: HYDROCORTISONE 1% TOPICAL CREAM 30 GM TUBE TP SCH ×2 (12:08→21:27)
[2017-12-20] MEDS: BUPRENORPHINE/NALOXONE 2 MG/0.5 MG FILM PACKET SL SCH (13:34)
[2017-12-20] MEDS: MELATONIN 5 MG TABLETS PO PRN (21:25)
[2017-12-20] MEDS: traZODone HCL 50 MG TABLET (FP) PO SCH (21:25)
[2017-12-20] MEDS: THIAMINE HCL 100 MG TABLET (FP) PO SCH (21:25)
[2017-12-21] MEDS: NICOTINE POLACRILEX 4 MG GUM BC PRN ×2 (06:28→10:23)
[2017-12-21] MEDS: hydrOXYzine PAMOATE 50 MG CAPSULE (FP) PO PRN ×2 (06:28→11:09)
[2017-12-21] MEDS: GABAPENTIN 100 MG CAPSULE (FP) PO SCH (06:28)
[2017-12-21] MEDS: CYCLOBENZAPRINE HCL 10 MG TABLET (FP) PO SCH (06:28)
[2017-12-21 06:50] VITALS: TEMP 98.7
[2017-12-21 09:25] VITALS: BP 116/63; PULSE 88
--- NOTE | 2017-12-21 09:34 | PN ---
Psychiatric Progress Note Vital Signs: Vital Signs Period Temp Pulse Resp BP Sys/Cordon Pulse Ox Last 24 Hr 98.7 F-98.7 F 77-88 17-19 98-116/58-63 Date of Session: 12/21/17 Chief Complaint:: Discharge Note HPI: Patient addressing Opioid and Sedative Dependence comorbid with Nicotine Dependence and Substance-Induced sleep Disorder ROS: Asthma Current Medications: Active Medications Generic Name Dose Route Start Last Admin Trade Name Freq PRN Reason Stop Dose Admin Acetaminophen 650 mg 12/01/17 12:16 12/07/17 13:22 Tylenol - PO 650 mg Q4H PRN Administration FEVER Al Hydroxide/Mg Hydroxide 30 ml 12/01/17 12:16 Mylanta Oral Suspension - PO Q6H PRN DYSPEPSIA Albuterol Sulfate 2 puff 12/01/17 21:34 12/05/17 21:36 Ventolin Hfa Inhaler - IH 2 puff Q4H PRN Administration ASTHMA Buprenorphine/Naloxone 2 each 12/13/17 12:01 12/20/17 13:34 Suboxone 2mg/0.5mg Sl Film - SL 2 each DAILY@1400 JEAN Administration Buprenorphine/Naloxone 1 each 12/13/17 12:02 12/20/17 17:48 Suboxone 8mg/2mg Sl Film - SL 1 each BID@1000,1800 JEAN Administration Clonazepam 1 mg 12/16/17 22:00 12/20/17 21:25 Klonopin - PO 1 mg BID JEAN Administration Cyclobenzaprine HCl 10 mg 12/07/17 14:00 12/21/17 06:28 Flexeril - PO 10 mg TID JEAN Administration Diphenoxylate HCl/Atropine 1 combo 12/18/17 13:29 12/20/17 14:38 Lomotil - PO 1 combo Q8H PRN Administration DIARRHEA Eucalyptus/Menthol/Phenol/Sorbitol 1 each 12/01/17 12:16 Cepastat Lozenge - MM Q4H PRN SORE THROAT Gabapentin 100 mg 12/09/17 22:00 12/21/17 06:28 Neurontin - PO 100 mg TID JEAN Administration Guaifenesin 10 ml 12/01/17 12:16 Robitussin Dm - PO Q6H PRN COUGH Hydrocortisone 1 applic 12/19/17 13:45 12/20/17 21:27 Hytone 1% Cream - TP Not Given BID JEAN Hydroxyzine Pamoate 50 mg 12/06/17 12:49 12/21/17 06:28 Vistaril - PO 50 mg Q4H PRN Administration AGITATION Ibuprofen 400 mg 12/01/17 12:16 12/14/17 10:20 Motrin - PO 400 mg Q6H PRN Administration Pain level 4-6 Magnesium Citrate 300 ml 12/01/17 12:16 Citroma - PO Q48H PRN CONSTIPATION Magnesium Hydroxide 30 ml 12/01/17 12:16 Milk Of Magnesia - PO DAILY PRN CONSTIPATION Melatonin 5 mg 12/01/17 22:00 12/20/17 21:25 Melatonin PO 5 mg HS PRN Administration INSOMNIA Nicotine 21 mg 12/01/17 12:30 12/20/17 10:00 Nicoderm Patch - TD 21 mg DAILY JEAN Administration Nicotine Polacrilex 4 mg 12/01/17 12:16 12/21/17 06:28 Nicorette Gum - BC 4 mg Q2H PRN Administration NICOTINE REPLACEMENT RX Multivit/Folic Acid/Iron 1 tab 12/02/17 10:00 12/20/17 10:32 Vitamins (Sjr) - PO 1 tab DAILY JEAN Administration Pseudoephedrine/Triprolidine 1 combo 12/01/17 12:16 Actifed - PO TID PRN NASAL CONGESTION Thiamine HCl 100 mg 12/01/17 22:00 12/20/17 21:25 Vitamin B1 - PO 100 mg HS JEAN Administration Trazodone HCl 150 mg 12/06/17 22:00 12/20/17 21:25 Desyrel - PO 150 mg HS JEAN Administration Current Side Effect: No Lab tests ordered: Yes Lab tests reviewed: Yes Provider note:: Patient has completed this program today. He has met his treatment goals and will continue to address his issues in outpatient treatment at [facility] at [address] [place] [address]. 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 He responded well to Trazadone 150 mg po HS. Script for 30 days supply of that medication is electronically transmitted to [facility] at [address] [place] [address]. He is stable for discharge today Total face to face time:: 35 Mental Status Exam - Mental Status Exam Alert and Oriented to: Time, Place, Person Cognitive Function: Fair Patient Appearance: Well Groomed Mood: Hopeful, Euthymic Affect: Appropriate Patient Behavior: Cooperative Speech Pattern: Clear Voice Loudness: Normal Thought Process: Intact Thought Disorder: Not Present Hallucinations: Denies Suicidal Ideation: Denies Homicidal Ideation: Denies Insight/Judgement: Fair Sleep: Fair Appetite: Good Muscle strength/Tone: Normal Gait/Station: Normal Psychiatric Treatment Plan - Problem List (1) Opioid dependence Current Visit: Yes Qualifiers: Substance use status: with opioid-induced sleep disorder Qualified Code(s) : F11.282 - Opioid dependence with opioid-induced sleep disorder (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
[2017-12-21] MEDS: NICOTINE 21 MG/24 HOURS TOPICAL PATCH TD SCH (10:21)
[2017-12-21] MEDS: BUPRENORPHINE/NALOXONE 8 MG/2 MG FILM PACKET SL SCH (10:21)
[2017-12-21] MEDS: PRENATAL VITAMINS W/ FOLIC ACID TABLET (FP) PO SCH (10:21)
[2017-12-21] MEDS: clonazePAM 0.5 MG TABLET PO SCH (10:22)
[2017-12-21] MEDS: HYDROCORTISONE 1% TOPICAL CREAM 30 GM TUBE TP SCH (10:22)
--- NOTE | 2017-12-21 12:09 | PN ---
[facility] Progress Note Note: Discharge Note Lawrence is unexpectedly being discharged today bc of insurance reasons. 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 I will therefore prescribe him a #30 day supply of Suboxone 8mg BID (60 strips) to hold him over until the appointment. I spoke with his PCP, Dr. Renee about his prescribing Xanax for the patient and he understands that he can no longer be given this medication. The PCP asks that the patient see an senior it specialist/psychiatrist to treat his benzo use disorder. I will prescribe him one weeks worth of Klonopin 1mg BID until he can find a practitioner in the community. Additionally, I will prescribe Clonidine 0.1mg BID as needed #30 no refills and Vistaril 50mg TID as needed for anxiety (#30). He understands the need for intensive outpatient support in order to continue his recovery process.
== END 2017-12-21 12:25 | disposition home or self-care (01) | DRG 772 ==
LOC: YASAS 09:25 → Y5N 12:59
PROVIDERS: ADMIT Psychiatry & Neurology Psychiatry; ATTEND Psychiatry & Neurology Psychiatry
PROC: HZ42ZZZ Group Counseling for Substance Abuse Treatment, Cognitive-Behavioral (ICD-10-PCS; principal; 2017-12-01)
DX: F11.20 Opioid dependence, uncomplicated (principal); F13.20 Sedative, hypnotic or anxiolytic dependence, uncomplicated; F17.210 Nicotine dependence, cigarettes, uncomplicated; F19.282 Other psychoactive substance dependence with psychoactive substance-induced sleep disorder; J45.20 Mild intermittent asthma, uncomplicated; R21 Rash and other nonspecific skin eruption
CPT/HCPCS: 36415; 71046-TC-FY; 80053; 81003; 81015; 85027; 86593